=== PATIENT | male | born 1975 | race Caucasian/White ===

== ENCOUNTER → 2016-09-18 | Outpatient (CLI) | payer OTHER ==
[~2016-09-18] MED LIST: NEURONTIN300 MG PO
--- NOTE | 2016-09-18 12:16 | DIAGNOSTIC IMAGING REPORT ---
PROCEDURE: XR CHEST 2 VIEW INDICATION: RIGHT UPPER QUADRANT ABD PX TECHNIQUE: PA and lateral views. COMPARISON: None. FINDINGS: Lungs are clear and hyperexpanded Heart and mediastinum are normal. Thorax is normal. IMPRESSION: 1. Negative chest.
== END ==
LOC: XR SRH 11:33
DX: R10.11 Right upper quadrant pain (principal)

== ENCOUNTER 2016-10-14 09:56 | Outpatient (CLI) | payer OTHER ==
--- NOTE | 2016-10-14 11:12 | DIAGNOSTIC IMAGING REPORT ---
PROCEDURE: US ABDOMEN ULTRASOUND-COMPLETE INDICATION: RUQ ABDOMINAL PAIN TECHNIQUE: Thompson scale and color Doppler sonographic images of the abdomen were obtained without comparison. COMPARISON: None. FINDINGS: The liver is normal in size, contour, and echotexture. No mass or intrahepatic biliary dilatation. The gallbladder is normal without stones or sludge. The wall is normal thickness measuring 2.4 mm No pericholecystic fluid or Urrutia sign. The extrahepatic common duct is normal measuring 1.8 mm The visualized pancreas is normal without ductal dilatation or peripancreatic fluid collection. The abdominal aorta is normal in its course and caliber. The retrohepatic inferior vena cava is patent. There is appropriate hepatopetal flow in the portal vein. The right kidney measures 11 x 3.6 x 4.6 cm in length. The left kidney measures 11.1 x 5.5 x 3.3 cm in length. Both kidneys demonstrate normal morphology and cortical thickness without hydronephrosis, cyst, solid mass, or shadowing calculus. Color Doppler imaging demonstrates normal blood flow in each kidney. The spleen is normal in size measuring 9.8 centimeters in length. There is no perihepatic or perisplenic ascites. IMPRESSION: 1. Normal abdominal ultrasound.
== END 2016-10-14 23:00 ==
LOC: US SRH 09:56
DX: R10.11 Right upper quadrant pain (principal)